=== PATIENT | female | born 1945 | race Caucasian/White ===

== ENCOUNTER 2022-11-27 15:27 | Emergency (ER) | payer MEDICARE, SELFPAY ==
[2022-11-27 15:42] VITALS: BP 139/79; BP 92/55; PULSE 82; RESP 16; TEMP 36.7; O2SAT 100; BMI 22.4
--- NOTE | 2022-11-27 15:43 | ECG_ITS ---
Test Reason : SYNCOPE Blood Pressure : / mmHG Vent. Rate : 088 BPM Atrial Rate : 088 BPM P-R Int : 144 ms QRS Dur : 066 ms QT Int : 358 ms P-R-T Axes : 075 -03 -09 degrees QTc Int : 433 ms Normal sinus rhythm Normal ECG No previous ECGs available Referred By: Generic ED Physician Electronically Signed By:GALINA FLEMING
[2022-11-27 15:58] LABS: Glucose, Whole Blood 90 mg/dL (60-115)
--- NOTE | 2022-11-27 17:00 | ED_ITS ---
HPI - Syncope General Chief Complaint: Syncope Stated Complaint: syncope Time Seen by Provider: 11/27/22 16:06 Source: patient Mode of arrival: EMS Limitations: no limitations History of Present Illness HPI narrative: Patient comes to the emergency room complaining of a near syncopal episode. Patient states that today, she was with some friends doing art project. Patient is to do up and started to feel lightheaded. Patient walked towards the lobby and realized that the lightheadedness was getting worse, patient was able to sit. Patient did not fall, did not hit her head or loss consciousness. Staff was able to assist the patient and called 911. EMS, the blood pressure was in the mid 80s. Up patient states that she was given IV fluids, and that made her feel much better. By the time that she arrived to the emergency room, patient was asymptomatic. Patient states that she feels back to baseline. Patient states that usually she eats breakfast and lunch. However, due to her activities today, she did not eat. Patient denies chest pain or shortness of breath Related Data Home Medications Medication Instructions Recorded Confirmed ibandronate 150 mg tablet 150 mg PO 08/25/20 08/25/20 Previous Rx's Medication Instructions Recorded doxycycline hyclate 100 mg tablet 100 mg PO BID #14 tabs 08/25/20 Allergies Allergy/AdvReac Type Severity Reaction Status Date / Time No Known Allergies Allergy Verified 08/25/20 15:08 Review of Systems 2 Review of Systems: Constitutional : No Weight loss, No Fever, No Chills, No Night Sweats, No Fatigue, No Malaise ENT/Mouth : No Hearing loss, No Ear Pain, No Nasal Congestion, No Sinus Pain, No Hoarseness, No sore throat, No Rhinorrhea, No Swallowing Difficulty Eyes: No Eye Pain, No Swelling, No Redness, No Foreign Body, No Discharge, No Vision Changes Cardiovascular : No Chest Pain, No SOB, No Dyspnea on Exertion, No Orthopnea, No Edema, No Palpitations Respiratory : No Cough, No Sputum, No Wheezing, No Smoke Exposure, No Dyspnea Gastrointestinal : No Nausea, No Vomiting, No Diarrhea, No Constipation, No abdominal Pain, No Hematochezia, No Melena Genitourinary : no irregular bleeding, No Dysuria, No Urinary Frequency, No Hematuria, No Urinary Incontinence, No Urgency, No Flank Pain, No Urinary Flow Changes, No Hesitancy Musculoskeletal : No joint pain, No Myalgias, No Joint Swelling Skin : No Skin Lesions, No rash Neuro : No Weakness, No Numbness, No Paresthesias, complaining of lightheadedness/near syncope, no headache Psych : No Anxiety/Panic, No Depression, No SI/HI/AH/VH, No Social Issues, Heme/Lymph: No Bruising, No Bleeding,No Lymphadenopathy Endocrine : No Polyuria, No Polydipsia, No Temperature Intolerance [facility] Social History Social History Advance Directives: No Advance Directives Information Provided: No Physical Exam 2 Vital Signs: Vital Signs: Last Vital Signs Temp 98.1 F 11/27/22 15:42 Pulse 90 11/27/22 17:20 Resp 16 11/27/22 15:42 BP 154/86 H 11/27/22 17:20 Pulse Ox 100 11/27/22 15:42 O2 Del Method Room Air 11/27/22 15:42 BMI result Body Mass Index 22.4 Const: Other: Appearance: Alert. Oriented X3. No acute distress. Eyes: Pupils equal, round and reactive to light. ENT: Pharynx normal. Neck: Normal inspection. Neck supple. No lymph nodes noted. No crepitus CVS: Normal heart rate and rhythm. Pulses normal. Normal S1 and S2 Respiratory: No respiratory distress. Breath sounds normal. No Wheezing. No rales Abdomen: Soft and nontender. No rigidity. No distention. Skin: Skin warm and dry. Normal skin color. Normal skin turgor. Extremities: No lower extremity edema. No Lacerations. No Rash Neuro: Oriented X 3. No motor deficit. No sensory deficit. Moving all extremities. No slurred speech. CN 2 through 12 grossly intact Psych: calm, cooperative, normal affect Course Course Course Narrative: -all of patient's labs and imaging pending. -patient received IV fluids, blood pressure 139/79, heart rate 82, oxygen saturation 100% on room air. Patient is completely asymptomatic Medical Decision Making Medical Decision Making MDM Narrative: -my interpretation of EKG: Normal sinus rhythm, heart rate 88, no ST segment depression elevation, no T-wave inversion, QTC 433 -patient's orthostatics negative -patient walked around the emergency room feeling at baseline. Tolerated well p.o. -patient's sodium 131, patient received IV fluids. Likely dehydrated. Troponin negative -patient's Wells score for pulmonary embolism is 0 Differential Diagnosis Differential Diagnoses: The differential diagnosis associated with the presentation includes (Orthostatic hypotension, dehydration, vasovagal near- syncope) Admission/Observation Consideration of admission/observation: Escalation of care including admission/observation considered (When patient arrived, patient had a near syncopal episode, admission was considered) Lab Data MDM Lab Attestation statement: I reviewed the patient's lab results. 11/27/22 17:10 11/27/22 17:10 Labs: Lab Results 11/27/22 11/27/22 11/27/22 Range/Units 15:49 17:10 17:28 WBC 8.1 (4.8-10.8) X10*3/uL RBC 3.86 L (4.20-5.50) X10*6/uL Hgb 12.7 (12.0-16.0) g/dl Hct 35.2 L (37.0-47.0) % MCV 91.2 (80.0-98.0) fL MCH 32.9 (27.0-33.0) pg MCHC 36.1 H (31.0-35.0) g/dl RDW 13.7 (11.0-16.0) % Plt Count 380 (160-400) X10*3/uL MPV 8.3 L (9.4-12.3) fL Immature Gran % (Auto) 0.1 (0.0-0.4) % Neut % (Auto) 76.7 H (45-73) % Lymph % (Auto) 16.6 L (20-40) % [place] % (Auto) 5.3 (2-11) % Eos % (Auto) 0.6 (0-4) % Baso % (Auto) 0.7 (0-2) % Lymph # (Auto) 1.3 (1.2-4.9) X10*3/uL [place] # (Auto) 0.4 (0.1-1.2) X10*3/uL Eos # (Auto) 0.1 (0.0-0.4) X10*3/uL Baso # (Auto) 0.1 (0.0-0.2) X10*3/uL Abs Immat Gran (auto) 0.01 (0.00-0.03) X10*3/uL Absolute Neuts (auto) 6.2 (2.0-8.3) x10*3/uL Absolute Nucleated RBC 0.000 (0.0-0.012) X10*3/uL Nucleated RBC % (auto) 0.0 (0.0-0.2) /100WBC Sodium 131 L (135-145) mmol/L Potassium 4.4 (3.3-5.1) mmol/L Chloride 98 (96-108) mmol/L Carbon Dioxide 23 (22-29) mmol/L Anion Gap 14 (12-20) BUN 10 (9-16) mg/dL Creatinine 0.62 (0.5-1.4) mg/dL Estim Creat Clear Calc 50.6 Estimated GFR > 60 POC Glucose 90 (60-115) mg/dL Random Glucose 95 (60-115) mg/dL Calcium 10.0 (8.4-10.2) mg/dL Total Bilirubin 0.4 (0.0-1.0) mg/dL Direct Bilirubin 0.2 (0.0-0.5) mg/dL AST 25 (5-31) U/L ALT 12 (0-31) U/L Alkaline Phosphatase 42 (39-117) U/L Troponin I High Sens < 2.7 (<3.5-17.0) ng/L Total Protein 7.6 (6.5-8.0) g/dL Albumin 4.4 (3.5-5.0) g/dL Urine Color Yellow Urine Appearance Clear Urine pH 7.0 (5.0-9.0) Ur Specific [place] 1.015 (1.005-1.025) Urine Protein Negative (Neg-Trace) mg/dL Urine Glucose (UA) Negative (Negative) mg/dL Urine Ketones 15 (Negative) mg/dL Urine Blood Negative (Negative) Urine Nitrite Negative (Negative) Ur Leukocyte Esterase Negative (Negative) Independent Interpretation I performed an independent interpretation of an: EKG Independent Historian Clinical information obtained from an independent historian. History obtained from or confirmed by: Other (Sisters) Discharge Plan Discharge Clinical Impression: Near syncope, Dehydration Patient Disposition: Home, Self-Care Instructions: Near Syncope (ED) Additional Instructions: Please follow-up with your primary care physician tomorrow. If you have any worsening or new symptoms, please return to the emergency room or call 911 Prescriptions: No Action ibandronate 150 mg tablet 150 mg PO doxycycline hyclate 100 mg tablet 100 mg PO BID Qty: 14 0RF
[2022-11-27 17:14] LABS: MANUAL DIFF FLAG NO
[2022-11-27 17:17] LABS: Basophils Absolute Auto 0.1 X10*3/uL (0.0-0.2); Basophils Percent Auto 0.7 % (0-2); Eosinophils Absolute Auto 0.1 X10*3/uL (0.0-0.4); Eosinophils Percent Auto 0.6 % (0-4); Hematocrit 35.2 % (37.0-47.0); Hemoglobin 12.7 g/dl (12.0-16.0); Imm Gran Abs Auto 0.01 X10*3/uL (0.00-0.03); Imm Gran Pct Auto 0.1 % (0.0-0.4); Lymphocytes Absolute Auto 1.3 X10*3/uL (1.2-4.9); Lymphocytes Percent Auto 16.6 % (20-40); Mean Corpuscular HGB Conc 36.1 g/dl (31.0-35.0); Mean Corpuscular Hemoglobin 32.9 pg (27.0-33.0); Mean Corpuscular Volume 91.2 fL (80.0-98.0); Mean Platelet Volume 8.3 fL (9.4-12.3); Monocytes Absolute Auto 0.4 X10*3/uL (0.1-1.2); Monocytes Percent Auto 5.3 % (2-11); Neutrophils Absolute Auto 6.2 x10*3/uL (2.0-8.3); Neutrophils Percent Auto 76.7 % (45-73); Platelet Count 380 X10*3/uL (160-400); Red Blood Count 3.86 X10*6/uL (4.20-5.50); Red Cell Distribution Width 13.7 % (11.0-16.0); White Blood Count 8.1 X10*3/uL (4.8-10.8)
[2022-11-27 17:18] VITALS: BP 144/77; PULSE 83
[2022-11-27 17:19] VITALS: BP 137/86; PULSE 91
[2022-11-27 17:20] VITALS: BP 154/86; PULSE 90
[2022-11-27 17:29] LABS: Alanine Aminotransferase 12 U/L (0-31); Albumin Level 4.4 g/dL (3.5-5.0); Alkaline Phosphatase 42 U/L (39-117); Anion Gap 14 (12-20); Aspartate Amino Transferase 25 U/L (5-31); Bilirubin Direct 0.2 mg/dL (0.0-0.5); Bilirubin Total 0.4 mg/dL (0.0-1.0); Blood Urea Nitrogen 10 mg/dL (9-16); Carbon Dioxide 23 mmol/L (22-29); Chloride 98 mmol/L (96-108); Creatinine Clr Calc Pharmacy 50.6; Estimated Glomerular Filt Rate > 60; Glucose Random 95 mg/dL (60-115); Potassium 4.4 mmol/L (3.3-5.1); Sodium 131 mmol/L (135-145); Total Protein 7.6 g/dL (6.5-8.0)
[2022-11-27 17:36] LABS: Troponin-I High Sensitivity < 2.7 ng/L (<3.5-17.0)
[2022-11-27 17:40] LABS: Appearance Urine Clear; Color Urine Yellow; Glucose Urine UA Negative (Negative); Leukocyte Esterase Urine Negative (Negative); Nitrite Urine Negative (Negative); Specific Gravity - Urine 1.015 (1.005-1.025); Urine Blood Negative (Negative); Urine Ketones 15 mg/dL (Negative); Urine Protein Negative (Neg-Trace)
== END 2022-11-27 19:13 | disposition home or self-care (01) ==
PROVIDERS: Emergency Provider Emergency Medicine; PCP Internal Medicine
DX: R55 Syncope and collapse (principal); E86.0 Dehydration
CPT/HCPCS: 36415; 80048; 80076; 81003; 82947; 84484; 85025; 93005; 99283; 99284

== ENCOUNTER 2023-12-20 19:54 | Inpatient (IN) | payer MEDICARE, SELFPAY ==
--- NOTE | ~2023-12-20 | CT_ITS ---
EXAMINATION: CT ABDOMEN AND PELVIS WITH CONTRAST CLINICAL INFORMATION: Left lower quadrant pain with tenderness to palpation and diarrhea COMPARISON: None available. TECHNIQUE: Multidetector volumetric images were obtained from the superior aspect of the liver through the pubic symphysis following administration 85 mL of Omnipaque 350 intravenous contrast. Sagittal and coronal reformatted images were obtained on the technologist's workstation. Oral contrast: No This CT examination was performed using dose optimization techniques as appropriate, variously including the following: *Automated exposure control *Adjustment of mA and/or kV according to patient size (this includes techniques or standardized protocols for targeted exams where dose is matched to indication/reason for exam; i.e. extremities or head) *Use of iterative reconstruction technique DLP: 444 mGy-cm FINDINGS: LUNG BASES: Emphysematous changes appear to be present. There is bronchial thickening and some cylindrical bronchiectasis seen at the lung bases. LIVER, GALLBLADDER, AND BILIARY TREE: The liver is normal in size, shape, and attenuation. There is a large complex cyst present at the tip of the right lobe of the liver measuring 4.9 x 4.0 x 6.2 cm few other scattered smaller cysts are present in the liver as well. No suspicious solid focal hepatic lesion or biliary ductal dilatation is present. The gallbladder is unremarkable with no evidence of radiopaque gallstones, gallbladder wall thickening, or obvious pericholecystic inflammatory changes. PANCREAS: Unremarkable. SPLEEN: Unremarkable. ADRENAL GLANDS: Adrenal glands are mildly thickened without discrete mass KIDNEYS AND URETERS: The kidneys are normal in size, shape, and attenuation. No hydronephrosis, hydroureter, or calculi seen. No perinephric stranding. BLADDER: The bladder is very distended. ABDOMINAL WALL AND GASTROINTESTINAL TRACT: A small hiatal hernia is present. There is an obstructing left inguinal hernia present (likely femoral) which contains a loop of small bowel. The bowel is tightly narrowed as it enters the hernia sac (7:27) and is tiny as it exits (see ash image). The distal small bowel is decompressed. The proximal small bowel is dilated. Colon is unremarkable and decompressed LYMPH NODES: Normal. VASCULAR: Unremarkable. PELVIC VISCERA: The uterus is not seen. An abnormal adnexal mass is not detected. No free intraperitoneal fluid is present. OSSEOUS STRUCTURES: Severe degenerative changes are present throughout the spine. There is marked grade 1 anterolisthesis of L4 upon L5. CT/CT abdomen pelvis w IV con IMPRESSION: 1. Markedly obstructing left femoral hernia containing a loop of small bowel. 2. Incidental note made of emphysema, hepatic cysts, small hiatal hernia, hysterectomy and severe degenerative changes in the spine with grade 1 anterolisthesis of L4 upon L5. Fleischner guidelines were followed. Electronically signed by: Sher Urbina MD 12/21/2023 01:37 AM EDT
--- NOTE | ~2023-12-20 | CT_ITS ---
EXAMINATION: CT HEAD WITHOUT CONTRAST CLINICAL INFORMATION: Fall. Head injury. COMPARISON: None available. TECHNIQUE: Contiguous axial imaging was performed from the skull base to vertex without intravenous administration of contrast. This CT examination was performed using dose optimization techniques as appropriate, variously including the following: *Automated exposure control *Adjustment of mA and/or kV according to patient size (this includes techniques or standardized protocols for targeted exams where dose is matched to indication/reason for exam; i.e. extremities or head) *Use of iterative reconstruction technique DLP: 635 mGy-cm FINDINGS: There is no acute intracranial hemorrhage. There is no evidence of acute/subacute cerebral or cerebellar infarction. There is no mass effect or midline shift. No extra-axial fluid collection. The ventricles are normal in size. There is mild microvascular ischemic change. The ocular lenses are surgically absent. The orbits are otherwise unremarkable. There is trace mucosal disease within the right maxillary sinus. There is sphenoid sinus mucosal disease bilaterally. The mastoid air cells are clear. The calvarium is intact. CT/CT head/brain wo IV con IMPRESSION: No acute intracranial abnormality. Microvascular ischemic change. Electronically signed by: Elías Sarabia DO 12/21/2023 12:40 AM EDT
--- NOTE | ~2023-12-20 | CT_ITS ---
EXAMINATION: CT CERVICAL SPINE WITHOUT CONTRAST CLINICAL INFORMATION: Fall. Head injury. COMPARISON: None available. TECHNIQUE: Noncontrast computed tomography of the cervical spine was performed. This CT examination was performed using dose optimization techniques as appropriate, variously including the following: *Automated exposure control *Adjustment of mA and/or kV according to patient size (this includes techniques or standardized protocols for targeted exams where dose is matched to indication/reason for exam; i.e. extremities or head) *Use of iterative reconstruction technique DLP: 859 mGy-cm FINDINGS: The prevertebral soft tissue is normal in appearance. There is trace anterolisthesis of C3 in relation to C4. There is mild anterolisthesis of C4 in relation to C5. There is mild anterolisthesis of C6 in relation to C7. There is trace anterolisthesis of C7 in relation to T1. The posterior elements are anatomically aligned. The atlantooccipital articulations are maintained. The dens is intact. The C1-C2 relationship is anatomic. Vertebral body heights are preserved. There is significant degenerative disc disease extending from C4-5 through C6-7. There is no acute cervical spine fracture. There is extensive facet arthropathy. The lung apices are clear. The thyroid gland is normal in appearance. CT/CT cervical spine wo IV con IMPRESSION: No acute osseous cervical spine abnormality. Degenerative disc disease and cervical spondylosis as described. Fleischner guidelines were followed. Electronically signed by: Elías Sarabia DO 12/21/2023 12:45 AM EDT
[2023-12-20 20:03] VITALS: BP 141/74; BP 145/65; PULSE 80; PULSE 92; RESP 15; TEMP 36.5; O2SAT 98; BMI 22.3
[2023-12-20 20:17] VITALS: BP 141/74; PULSE 92; RESP 15; TEMP 36.5; O2SAT 98
--- NOTE | 2023-12-20 20:19 | ECG_ITS ---
Test Reason : MITCHD Blood Pressure : / mmHG Vent. Rate : 093 BPM Atrial Rate : 093 BPM P-R Int : 154 ms QRS Dur : 072 ms QT Int : 334 ms P-R-T Axes : 049 -05 -03 degrees QTc Int : 415 ms Normal sinus rhythm Low voltage QRS Borderline ECG When compared with ECG of 27-NOV-2022 15:51, No significant change was found Referred By: Generic ED Physician Electronically Signed By:GALINA FLEMING
[2023-12-20 20:44] LABS: MANUAL DIFF FLAG NO
[2023-12-20 20:53] LABS: Basophils Percent Auto 0.2 % (0-2); Eosinophils Percent Auto 0.1 % (0-4); Hematocrit 33.3 % (37.0-47.0); Hemoglobin 12.2 g/dl (12.0-16.0); Imm Gran Abs Auto 0.03 X10*3/uL (0.00-0.03); Imm Gran Pct Auto 0.2 % (0.0-0.4); Lymphocytes Absolute Auto 0.7 X10*3/uL (1.2-4.9); Mean Corpuscular HGB Conc 36.6 g/dl (31.0-35.0); Mean Corpuscular Hemoglobin 32.5 pg (27.0-33.0); Mean Corpuscular Volume 88.8 fL (80.0-98.0); Mean Platelet Volume 8.1 fL (9.4-12.3); Monocytes Absolute Auto 0.4 X10*3/uL (0.1-1.2); Monocytes Percent Auto 3.3 % (2-11); Neutrophils Absolute Auto 12.3 x10*3/uL (2.0-8.3); Neutrophils Percent Auto 91.2 % (45-73); Platelet Count 348 X10*3/uL (160-400); Red Blood Count 3.75 X10*6/uL (4.20-5.50); Red Cell Distribution Width 13.4 % (11.0-16.0); SCAN SMEAR FLAG 1; White Blood Count 13.5 X10*3/uL (4.8-10.8)
[2023-12-20 20:58] LABS: Alanine Aminotransferase 17 U/L (0-31); Albumin Level 4.2 g/dL (3.5-5.0); Alkaline Phosphatase 67 U/L (39-117); Anion Gap 13 (12-20); Aspartate Amino Transferase 26 U/L (5-31); Bilirubin Total 0.4 mg/dL (0.0-1.0); Blood Urea Nitrogen 9 mg/dL (9-16); Calcium 9.5 mg/dL (8.4-10.2); Carbon Dioxide 20 mmol/L (22-29); Chloride 95 mmol/L (96-108); Creatinine Clr Calc Pharmacy 54.1; Estimated Glomerular Filt Rate > 60; Glucose Random 118 mg/dL (60-115); Lipase 24 U/L (8-78); Potassium 4.3 mmol/L (3.3-5.1); Sodium 124 mmol/L (135-145); Total Protein 7.5 g/dL (6.5-8.0)
[2023-12-20 21:06] LABS: Troponin-I High Sensitivity < 2.7 ng/L (<3.5-17.0)
--- NOTE | 2023-12-20 21:42 | ED_ITS ---
HPI - Abdominal Pain General Chief Complaint: Abdominal Pain Stated Complaint: abd pain, diarrhea Time Seen by Provider: 12/20/23 20:50 Source: patient, family and EMS Mode of arrival: EMS Limitations: no limitations History of Present Illness HPI narrative: Patient is a 78-year-old female who presents emergency department via EMS for evaluation. She reports that she went to lunch today, had a cup of soup glass of wine. Approximately 30-45 minutes later she began to have abdominal pain with abrupt onset loose watery diarrhea, she was unable to make it to the bathroom. She ultimately went home, she had a 2nd episode of diarrhea. After this she was walking, began to feel lightheaded and reports that she ?passed out?, but then reporting that she was awake the entire time, states she struck her head on the right side either onto an oscillating fan or the ground. At this time she denies headache, vision changes, dizziness, lightheadedness, neck pain, chest pain, shortness of breath, numbness or tingling of her extremities, symptoms. She is currently endorsing pain diffusely across the lower abdomen. Reports a history of a similar presentation a few years ago, was out of state visiting her son, symptoms ultimately resolved and she never sought evaluation. Related Data Home Medications ?Medication ?Instructions ?Recorded ?Confirmed oxybutynin chloride 5 mg 5 mg PO DAILY 12/21/23 12/21/23 tablet,extended release 24 hr Allergies Allergy/AdvReac Type Severity Reaction Status Date / Time No Known Allergies Allergy Verified 12/20/23 20:06 Review of Systems Review of Systems Yes all other systems are reviewed and are negative PMFSH Past Medical History Attestation statement: The following information was validated with the patient. Source: old records reviewed Social History Social History Smoked in Last 30 Days: No Use of substances other than those prescribed or required for medical reasons: No Advance Directives: Yes Advance Directives Information Provided: No Advance Directives on File: No Do you have a plan to hurt others: No Plan Physical Exam ED Vital Signs: Vital Signs - 24 hr 12/20/23 20:03 12/20/23 20:17 12/20/23 22:17 Temperature 97.7 F 97.7 F Pulse Rate 92 92 89 Respiratory Rate 15 15 Blood Pressure 141/74 H 141/74 H 137/68 Pulse Oximetry 98 98 Oxygen Delivery Method Room Air Room Air 12/20/23 22:18 12/20/23 22:19 12/20/23 22:51 Temperature 98.2 F Pulse Rate 94 100 58 Respiratory Rate 17 Blood Pressure 141/67 H 129/67 135/59 L Pulse Oximetry 99 Oxygen Delivery Method Room Air 12/21/23 05:37 12/21/23 05:42 12/21/23 08:25 Temperature 98.9 F 97.8 F 98.1 F Pulse Rate 85 79 72 Respiratory Rate 17 15 12 Blood Pressure 128/63 139/67 157/76 H Pulse Oximetry 98 100 98 Oxygen Delivery Method Room Air Room Air Room Air BMI result Body Mass Index 22.3 Appearance: Alert.?Oriented to person, place and time. No acute distress.?Normal affect. Eyes: Pupils equal, round and reactive to light.? ENT: Pharynx normal.?? Neck: Normal inspection.? Neck supple.?? CVS: Heart sounds normal. Normal heart rate and rhythm.? Pulses normal.?? Respiratory: No respiratory distress.? Lung sounds clear to auscultation bilaterally?? Abdomen: Soft with diffuse lower abdominal tenderness, worse on the left lower quadrant upon palpation. No CVAT Normoactive bowel sounds. Skin: Skin warm and dry.? Normal skin color.? Extremities: No lower extremity edema.? No calf ttp? Neuro: Moves all extremities spontaneously. Sensation intact bilaterally. CN II- XII intact. No focal neuro deficits. Ambulates with normal steady gait. Course Reevaluation(s) Reevaluation #1: CBC revealing leukocytosis 13.5, no significant anemia, no thrombocytopenia. Chemistries revealing hyponatremia with sodium of 124, urine sodium 51, urine osmolality 269, serum Osmo 268, likely SIADH. Reevaluation #2: Radiology called regarding critical finding of CT abdomen and pelvis; obstructive left femoral hernia containing small bowel. Unable to reduce at bedside. Consulting general surgery, Dr. Ruggiero Time: 01:43 Reevaluation #3: Dr. Ruggiero advises patient will require surgical repair, plans to do this in the morning, awaiting call back from nursing pigment making supervisor to chemistry be no inability to perform surgery in the morning given scheduled auxillary power testing. I do not foresee this resulting in an inability for surgery to occur, but awaiting confirmation. Dr. Ruggiero requesting plan for admission to medicine service given hyponatremia and surgical consultation. Spoke with hospitalist, Dr. Janes Garcia regarding patient. Time: 09:42 Additional Reevaluation(s): Patient's sodium improved to [address] Ruggiero will admit to their service Medical Decision Making Medical Decision Making MDM Narrative: Patient is a 78-year-old female with no reported past medical history presenting to emergency department for evaluation of diffuse lower abdominal pain in the setting of 2 episodes of uncontrollable diarrhea today as per HPI. Diffuse lower abdominal tenderness upon palpation, most notably in the left lower quadrant. Will obtain CBC to evaluate for leukocytosis/ anemia, CMP and lipase to evaluate for abnormal electrolytes /abnormal renal function/ abnormal hepatic/biliary function, CT of the abdomen and pelvis, and Urinalysis. Him concern for possible syncopal episode, maybe vasovagal, however will obtain troponin and EKG Differential Diagnosis Differential Diagnoses: The differential diagnosis associated with the presentation includes Consult Healthcare Provider Management of the patient was discussed with: Edge Stripper General surgery; Dr. Ruggiero. Patient to be admitted to surgical service with plan for surgical repair in the morning. Patient made aware, agreeable with plan of care Lab Data MDM Lab Attestation statement: I reviewed the patient's lab results. (See course narrative) 12/20/23 20:38 12/21/23 04:48 Labs: Lab Results 12/20/23 12/20/23 12/20/23 Range/Units 20:38 23:47 23:48 WBC 13.5 H (4.8-10.8) X10*3/uL RBC 3.75 L (4.20-5.50) X10*6/uL Hgb 12.2 (12.0-16.0) g/dl Hct 33.3 L (37.0-47.0) % MCV 88.8 (80.0-98.0) fL MCH 32.5 (27.0-33.0) pg MCHC 36.6 H (31.0-35.0) g/dl RDW 13.4 (11.0-16.0) % Plt Count 348 (160-400) X10*3/uL MPV 8.1 L (9.4-12.3) fL Immature Gran % (Auto) 0.2 (0.0-0.4) % Neut % (Auto) 91.2 H (45-73) % Lymph % (Auto) 5.0 L (20-40) % [place] % (Auto) 3.3 (2-11) % Eos % (Auto) 0.1 (0-4) % Baso % (Auto) 0.2 (0-2) % Lymph # (Auto) 0.7 L (1.2-4.9) X10*3/uL [place] # (Auto) 0.4 (0.1-1.2) X10*3/uL Eos # (Auto) 0.0 (0.0-0.4) X10*3/uL Baso # (Auto) 0.0 (0.0-0.2) X10*3/uL Abs Immat Gran (auto) 0.03 (0.00-0.03) X10*3/uL Absolute Neuts (auto) 12.3 H (2.0-8.3) x10*3/uL Absolute Nucleated RBC 0.000 (0.0-0.012) X10*3/uL Nucleated RBC % (auto) 0.0 (0.0-0.2) /100WBC PT 11.9 (10.9-12.4) SEC INR 1.0 (0.9-1.1) Sodium 124 L (135-145) mmol/L Potassium 4.3 (3.3-5.1) mmol/L Chloride 95 L (96-108) mmol/L Carbon Dioxide 20 L (22-29) mmol/L Anion Gap 13 (12-20) BUN 9 (9-16) mg/dL Creatinine 0.57 (0.5-1.4) mg/dL Estim Creat Clear Calc 54.1 Estimated GFR > 60 Random Glucose 118 H (60-115) mg/dL Osmolality 268 L (281-305) mosm/kg Lactic Acid (0.5-2.0) mmol/L Calcium 9.5 (8.4-10.2) mg/dL Total Bilirubin 0.4 (0.0-1.0) mg/dL AST 26 (5-31) U/L ALT 17 (0-31) U/L Alkaline Phosphatase 67 (39-117) U/L Troponin I High Sens < 2.7 (<3.5-17.0) ng/L Total Protein 7.5 (6.5-8.0) g/dL Albumin 4.2 (3.5-5.0) g/dL Lipase 24 (8-78) U/L Urine Color Urine Appearance Urine pH (5.0-9.0) Ur Specific [place] (1.005-1.025) Urine Protein (Neg-Trace) mg/dL Urine Glucose (UA) (Negative) mg/dL Urine Ketones (Negative) mg/dL Urine Blood (Negative) Urine Nitrite (Negative) Ur Leukocyte Esterase (Negative) Urine RBC (0-2) /HPF Urine WBC (0-5) /HPF Ur Squamous Epith Cells (0-2) /HPF Urine Bacteria (None Seen) Hyaline Casts (0-2) /LPF Urine Osmolality (373-1093) mosm/kg Ur Random Sodium mmol/L 12/20/23 12/21/23 12/21/23 Range/Units 23:49 03:21 04:48 WBC (4.8-10.8) X10*3/uL RBC (4.20-5.50) X10*6/uL Hgb (12.0-16.0) g/dl Hct (37.0-47.0) % MCV (80.0-98.0) fL MCH (27.0-33.0) pg MCHC (31.0-35.0) g/dl RDW (11.0-16.0) % Plt Count (160-400) X10*3/uL MPV (9.4-12.3) fL Immature Gran % (Auto) (0.0-0.4) % Neut % (Auto) (45-73) % Lymph % (Auto) (20-40) % [place] % (Auto) (2-11) % Eos % (Auto) (0-4) % Baso % (Auto) (0-2) % Lymph # (Auto) (1.2-4.9) X10*3/uL [place] # (Auto) (0.1-1.2) X10*3/uL Eos # (Auto) (0.0-0.4) X10*3/uL Baso # (Auto) (0.0-0.2) X10*3/uL Abs Immat Gran (auto) (0.00-0.03) X10*3/uL Absolute Neuts (auto) (2.0-8.3) x10*3/uL Absolute Nucleated RBC (0.0-0.012) X10*3/uL Nucleated RBC % (auto) (0.0-0.2) /100WBC PT (10.9-12.4) SEC INR (0.9-1.1) Sodium 130 L (135-145) mmol/L Potassium (3.3-5.1) mmol/L Chloride (96-108) mmol/L Carbon Dioxide (22-29) mmol/L Anion Gap (12-20) BUN (9-16) mg/dL Creatinine (0.5-1.4) mg/dL Estim Creat Clear Calc Estimated GFR Random Glucose (60-115) mg/dL Osmolality (281-305) mosm/kg Lactic Acid 0.8 (0.5-2.0) mmol/L Calcium (8.4-10.2) mg/dL Total Bilirubin (0.0-1.0) mg/dL AST (5-31) U/L ALT (0-31) U/L Alkaline Phosphatase (39-117) U/L Troponin I High Sens (<3.5-17.0) ng/L Total Protein (6.5-8.0) g/dL Albumin (3.5-5.0) g/dL Lipase (8-78) U/L Urine Color Yellow Urine Appearance Clear Urine pH 6.5 (5.0-9.0) Ur Specific [place] 1.020 (1.005-1.025) Urine Protein Negative (Neg-Trace) mg/dL Urine Glucose (UA) Negative (Negative) mg/dL Urine Ketones 40 (Negative) mg/dL Urine Blood Negative (Negative) Urine Nitrite Negative (Negative) Ur Leukocyte Esterase Negative (Negative) Urine RBC 3-5 H (0-2) /HPF Urine WBC 0-5 (0-5) /HPF Ur Squamous Epith Cells 0-2 (0-2) /HPF Urine Bacteria None Seen (None Seen) Hyaline Casts 0-2 (0-2) /LPF Urine Osmolality 269 L (373-1093) mosm/kg Ur Random Sodium 51.0 mmol/L Independent Interpretation I performed an independent interpretation of an: EKG Interpretation: Rate: 93 Rhythm:? Normal sinus rhythm Normal P waves.? Normal MARY.?? Normal QRS complex.?? ST T wave :??No ST elevation, no ST depression qTC:415 prior studies:? November of 2022 The study has been interpreted contemporaneously by me. Radiology Impression Discussion of test interpretation with radiology: I have reviewed the radiologist's reading. Radiologist Impression: CT/CT head/brain wo IV con IMPRESSION: No acute intracranial abnormality. Microvascular ischemic change. CT/CT cervical spine wo IV con IMPRESSION: No acute osseous cervical spine abnormality. Degenerative disc disease and cervical spondylosis as described. . CT/CT abdomen pelvis w IV con IMPRESSION: 1. Markedly obstructing left femoral hernia containing a loop of small bowel. 2. Incidental note made of emphysema, hepatic cysts, small hiatal hernia, hysterectomy and severe degenerative changes in the spine with grade 1 anterolisthesis of L4 upon L5. Independent Historian Clinical information obtained from an independent historian. History obtained from or confirmed by: EMS and Other (Sister's) External Record Review External record reviewed: Outpatient record Medications Administered Generic Name Dose Route Start Last Admin Trade Name Freq PRN Reason Stop Dose Admin Lactated Ringer's 1,000 mls @ 100 mls/hr 12/21/23 05:15 12/21/23 05:40 Lr IVCONT 100 mls/hr .Q10H KIAN Administration Discontinued Medications Generic Name Dose Route Start Last Admin Trade Name Freq PRN Reason Stop Dose Admin Sodium Chloride 1,000 mls @ 999 mls/hr 12/20/23 22:15 12/21/23 01:48 Ns IV 12/20/23 23:15 Infused .Q1H1M KIAN Infusion Iohexol 85 ml 12/20/23 23:16 12/20/23 23:16 Iohexol 350 Mg/Ml 100 Ml Infus..Btl IV 12/20/23 23:17 85 ml ONCE ONE Administration Discharge Plan Discharge Clinical Impression: Femoral hernia of left side with obstruction Patient Disposition: Admitted As Inpatient Print Language: Malay
[2023-12-20 22:17] VITALS: BP 137/68; PULSE 89
[2023-12-20 22:18] VITALS: BP 141/67; PULSE 94
[2023-12-20 22:19] VITALS: BP 129/67; PULSE 100
[2023-12-20] MEDS: 0.9 % Sodium Chloride 1,000 ML 999 ML IV (22:42)
[2023-12-20 22:51] VITALS: BP 135/59; PULSE 58; RESP 17; TEMP 36.8; O2SAT 99
[2023-12-20] MEDS: iohexoL 350 MG/ML 100 ML INFUS..BTL 85 ML IV (23:16)
[2023-12-20 23:56] LABS: Appearance Urine Clear; Color Urine Yellow; Glucose Urine UA Negative (Negative); Leukocyte Esterase Urine Negative (Negative); Nitrite Urine Negative (Negative); PH 6.5 (5.0-9.0); Urine Blood Negative (Negative); Urine Ketones 40 mg/dL (Negative); Urine Protein Negative (Neg-Trace)
[2023-12-21] VITALS (11 sets, daily range): BP systolic 121–157; BP diastolic 50–85; PULSE 72–99; RESP 12–18; TEMP 36–37.2; O2SAT 95–100; BMI 25.1
[2023-12-21 00:01] LABS: Prothrombin Time 11.9 SEC (10.9-12.4)
[2023-12-21 00:08] LABS: Bacteria Urine None Seen (None Seen); Hyaline Casts Urine 0-2 /LPF (0-2); Squamous Epithelial Cell Urine 0-2 /HPF (0-2); WBC Urine 0-5 /HPF (0-5)
[2023-12-21 00:26] LABS: Osmolality Urine 269 mosm/kg (373-1093)
[2023-12-21 00:48] LABS: Osmolality, Serum 268 mosm/kg (281-305)
[2023-12-21 03:41] LABS: Lactic Acid 0.8 mmol/L (0.5-2.0)
[2023-12-21 05:01] LABS: Sodium 130 mmol/L (135-145)
[2023-12-21] MEDS: Lactated Ringers 1,000 ML 100 ML IVCONT (05:40)
--- NOTE | 2023-12-21 08:40 | PHA.MEDREC ---
Addendum entered by Pranay Palacios 12/21/23 08:50: reviewed Original Note: Pharmacy Consult ? Medication Reconciliation Pharmacy has completed the medication reconciliation.
--- NOTE | 2023-12-21 12:58 | PC.NURSE ---
family with pt. pt has no complaints except that she is thirsty. Explained tht before surgery there she cannot have anything to eat or drink. Pt ok with plan. Waiting to surgical consult to come in and speak to patient.
--- NOTE | 2023-12-21 13:56 | PC.NURSE ---
sister Simba [phone]
--- NOTE | 2023-12-21 14:02 | P.CONAN_ITS ---
[facility] Active Problems Active Problems: All Active Problems Femoral hernia of left side with obstruction (Acute) Insect bite (Acute) Past Medical History Functional capacity: independent ambulation Patient : No Family History Family history of problems with anesthesia: No Surgical History History of Problems with Anesthesia: No Social History Social History Smoked in Last 30 Days: No Use of substances other than those prescribed or required for medical reasons: No Advance Directives: Yes Advance Directives Information Provided: No Advance Directives on File: No Do you have a plan to hurt others: No Plan Meds Allergies Allergy/AdvReac Type Severity Reaction Status Date / Time No Known Allergies Allergy Verified 12/20/23 20:06 Active Medications: Current Medications Lactated Ringer's (Lr) 1,000 mls @ 100 mls/hr IVCONT .Q10H KIAN Last Admin: 12/21/23 05:40 Dose: 100 mls/hr Home Medications ?Medication ?Instructions ?Recorded ?Confirmed ?Last Taken ?Type oxybutynin chloride 5 mg 5 mg PO DAILY 12/21/23 12/21/23 Unknown History tablet,extended release 24 hr Exam Height,Weight and Vital Signs: Height 4 ft 10 in Weight 48.4 kg Last Vital Signs Temp 98.1 F 12/21/23 12:17 Pulse 82 12/21/23 12:17 Resp 14 12/21/23 12:17 BP 128/62 12/21/23 12:17 Pulse Ox 98 12/21/23 12:17 O2 Del Method Room Air 12/21/23 12:17 Pertinent Lab Results Pertinent Lab Results: Laboratory Tests 12/20/23 12/20/23 12/20/23 20:38 23:47 23:48 WBC 13.5 H RBC 3.75 L Hgb 12.2 Hct 33.3 L MCV 88.8 MCH 32.5 MCHC 36.6 H RDW 13.4 Plt Count 348 MPV 8.1 L Immature Gran % (Auto) 0.2 Neut % (Auto) 91.2 H Lymph % (Auto) 5.0 L [place] % (Auto) 3.3 Eos % (Auto) 0.1 Baso % (Auto) 0.2 Lymph # (Auto) 0.7 L [place] # (Auto) 0.4 Eos # (Auto) 0.0 Baso # (Auto) 0.0 Abs Immat Gran (auto) 0.03 Absolute Neuts (auto) 12.3 H Absolute Nucleated RBC 0.000 Nucleated RBC % (auto) 0.0 PT 11.9 INR 1.0 Sodium 124 L Potassium 4.3 Chloride 95 L Carbon Dioxide 20 L Anion Gap 13 BUN 9 Creatinine 0.57 Estim Creat Clear Calc 54.1 Estimated GFR > 60 Random Glucose 118 H Osmolality 268 L Lactic Acid Calcium 9.5 Total Bilirubin 0.4 AST 26 ALT 17 Alkaline Phosphatase 67 Troponin I High Sens < 2.7 Total Protein 7.5 Albumin 4.2 Lipase 24 Urine Color Urine Appearance Urine pH Ur Specific [place] Urine Protein Urine Glucose (UA) Urine Ketones Urine Blood Urine Nitrite Ur Leukocyte Esterase Urine RBC Urine WBC Ur Squamous Epith Cells Urine Bacteria Hyaline Casts Urine Osmolality Ur Random Sodium 12/20/23 12/21/23 12/21/23 23:49 03:21 04:48 WBC RBC Hgb Hct MCV MCH MCHC RDW Plt Count MPV Immature Gran % (Auto) Neut % (Auto) Lymph % (Auto) [place] % (Auto) Eos % (Auto) Baso % (Auto) Lymph # (Auto) [place] # (Auto) Eos # (Auto) Baso # (Auto) Abs Immat Gran (auto) Absolute Neuts (auto) Absolute Nucleated RBC Nucleated RBC % (auto) PT INR Sodium 130 L Potassium Chloride Carbon Dioxide Anion Gap BUN Creatinine Estim Creat Clear Calc Estimated GFR Random Glucose Osmolality Lactic Acid 0.8 Calcium Total Bilirubin AST ALT Alkaline Phosphatase Troponin I High Sens Total Protein Albumin Lipase Urine Color Yellow Urine Appearance Clear Urine pH 6.5 Ur Specific [place] 1.020 Urine Protein Negative Urine Glucose (UA) Negative Urine Ketones 40 Urine Blood Negative Urine Nitrite Negative Ur Leukocyte Esterase Negative Urine RBC 3-5 H Urine WBC 0-5 Ur Squamous Epith Cells 0-2 Urine Bacteria None Seen Hyaline Casts 0-2 Urine Osmolality 269 L Ur Random Sodium 51.0 Airway Mallampati Class: II TM Dist: >3cm Neck ROM: Full Heart: RRR Lungs: CTA Assessment and Plan Assessment Anesthesia Assessment: Anesthesia Plan Discussed and Chart Reviewed Final Anesthetic Review Family History of Problems with Anesthesia: No History of Problems with Anesthesia: No NPO: Yes ASA Class: II and Emergency Final Preanesthetic Review: Meds/Allgs Chart Reviewed, Consent Obt ained/Reviewed, Anes Risks/Benef Reviewed and DNR Form (If Appl.) Patient Risk: Low Procedure Risk: Low Anesthetic Plan Anesthetic Plan: GA Disposition: Standard PACU
--- NOTE | 2023-12-21 14:07 | PC.NURSE ---
pt picked up Dr. Ruggiero for transport to OR. Report given to RN in OR
--- NOTE | 2023-12-21 14:11 | P.HPGS_ITS ---
History of Present Illness History of Present Illness Date of Service: 12/21/23 Chief complaint: abd pain, diarrhea Narrative: Fannie Bolton is a 78 year old female who is initial complaints were for diarrhea, lightheadedness which progressed to lower abdominal pain with associated nausea and vomiting. Workup including CT scan demonstrated findings consistent with an incarcerated left femoral hernia. Patient was unaware she had hernia before. She has never had symptoms from it prior to this. She otherwise tolerating a diet, has regular bowel habits. No prior abdominal surgeries Chart was reviewed and patient evaluated PMF Social History Social History Smoked in Last 30 Days: No Use of substances other than those prescribed or required for medical reasons: No Advance Directives: Yes Advance Directives Information Provided: No Advance Directives on File: No Do you have a plan to hurt others: No Plan Meds Allergies Allergy/AdvReac Type Severity Reaction Status Date / Time No Known Allergies Allergy Verified 12/20/23 20:06 Active Medications: Current Medications Lactated Ringer's (Lr) 1,000 mls @ 100 mls/hr IVCONT .Q10H KIAN Last Admin: 12/21/23 05:40 Dose: 100 mls/hr Cefazolin Sodium/Dextrose (Ancef) 2 gm in 50 mls @ 100 mls/hr IV PREOP ONE Stop: 12/21/23 14:38 Home Medications ?Medication ?Instructions ?Recorded ?Confirmed ?Last Taken ?Type oxybutynin chloride 5 mg 5 mg PO DAILY 12/21/23 12/21/23 Unknown History tablet,extended release 24 hr Physical Exam Vital Signs: Vital Signs: Last Vital Signs Temp 98.1 F 12/21/23 12:17 Pulse 82 12/21/23 12:17 Resp 14 12/21/23 12:17 BP 128/62 12/21/23 12:17 Pulse Ox 98 12/21/23 12:17 O2 Del Method Room Air 12/21/23 12:17 BMI result Body Mass Index 22.3 Const: Other: Petite elderly female in no acute abdominal distress although having low were groin left side pain Chest: Other: Chest breath sounds bilaterally, HS 1 in 2 GI: Other: Abdomen is soft, benign. Patient has an incarcerated left femoral hernia. Results Results Labs: Short CBC 12/20/23 Range/Units 20:38 WBC 13.5 H (4.8-10.8) X10*3/uL Hgb 12.2 (12.0-16.0) g/dl Hct 33.3 L (37.0-47.0) % Plt Count 348 (160-400) X10*3/uL BMP 12/20/23 12/21/23 20:38 04:48 Sodium 124 L 130 L Potassium 4.3 Chloride 95 L Carbon Dioxide 20 L BUN 9 Creatinine 0.57 Calcium 9.5 Liver Function 12/20/23 Range/Units 20:38 Total Bilirubin 0.4 (0.0-1.0) mg/dL AST 26 (5-31) U/L ALT 17 (0-31) U/L Alkaline Phosphatase 67 (39-117) U/L Albumin 4.2 (3.5-5.0) g/dL Urine 12/20/23 Range/Units 23:49 Urine Color Yellow Urine Appearance Clear Urine pH 6.5 (5.0-9.0) Ur Specific [place] 1.020 (1.005-1.025) Urine Protein Negative (Neg-Trace) mg/dL Urine Glucose (UA) Negative (Negative) mg/dL Assessment and Plan (1) Femoral hernia of left side with obstruction: Status: Acute Plan Risks, benefits, and alternatives of open left femoral hernia incarcerated repair reviewed with the patient and included but not limited to bleeding, infe ction, recurrence, numbness, pain, scarring, possibility for laparotomy should the bowel be compromise, possible bowel resection, possible ostomy and the patient wished to proceed. All questions answered. Patient is for OR presently. Quality Stroke Does the patient have a stroke diagnosis?: No VTE Prior VTE?: No VTE Risk Level:: Surgical - low VTE Device Contraindication: N/A - Device Ordered VTE Drug Contraindication: Treatment Not Indicated Procedures Date of Service Date of Service: 12/21/23
--- NOTE | 2023-12-21 15:41 | W.PM.OPN ---
Operative Note Operative Note Date of Service: 12/21/23 Narrative: Preoperative diagnosis: [] Incarcerated left femoral hernia Postop diagnosis: [] The same Procedure [] open repair incarcerated left femoral hernia with Bard mesh Surgeon: [] Bahman Amusement Machine Mechanic: [] Type of Anesthesia: [] General Indication for surgery: [] Incarcerated left femoral hernia with congested but viable segment of small bowel. Once obstruction was relieved, bowel became pink, had peristalsis, and palpable mesentery pulse. Findings: [] Patient brought to the operating room, placed on operative table supine position, after an adequate level of general anesthesia was induced, the patient's abdomen and left groin were prepped and draped in usual sterile fashion using a left infra inguinal, para inguinal incision over the femoral hernia, this carried down through skin, subcutaneous tissue, and Jane's fascia. Hernia sac was identified and circumferentially dissected down through the femoral canal. The left Inferior epigastric artery and vein were identified, clamped, cut, and tied using 2-0 Vicryl ties, to enhance exposure of the operative field. Superior border of the femoral canal/part of the inguinal ligament was opened and the sac was entered where findings were as noted above. With moist lap pad with saline over the incarcerated segment of small bowel which was initially quite congested, became pink and viable as noted above. This was uneventfully reduced. Hernia sac was closed using running locking 2-0 Vicryl suture. Hernia defect was closed with a Bard plug placed in this defect and sutured medially to the conjoined tendon, superiorly to the inguinal ligament, and inferiorly to the aponeurosis of the underlying adductor muscles. Wound was irrigated, secured hemostasis and Was closed in the following manner; Jane's fascia was reapproximated using interrupted 3-0 Vicryl suture. Interrupted inverted deep dermal 3-0 Vicryl sutures followed by running subcuticular 4-0 Vicryl sutures were placed. Steri-Strips and sterile dressings were applied. Wound was infiltrated the beginning and at the end of the case with 0.5% Marcaine. Sponge, needle, and instrument counts reported correct. Patient tolerated the procedure well and emerged from anesthesia stable condition. EBL minimal
[2023-12-21] MEDS: Acetaminophen 1,000 MG/100 ML PIGGYBACK 400 MG IV (15:47)
[2023-12-21] MEDS: Dextrose 5 % and 0.45 % NaCl 1,000 ML 100 ML IVCONT (16:17)
[2023-12-21] MEDS: Acetaminophen 325 MG TABLET 650 MG PO (22:38)
[2023-12-22] VITALS (8 sets, daily range): BP systolic 97–131; BP diastolic 57–77; PULSE 69–90; RESP 12–20; TEMP 36.4–37.1; O2SAT 94–100
[2023-12-22] MEDS: Dextrose 5 % and 0.45 % NaCl 1,000 ML 100 ML IVCONT ×2 (01:19→15:35)
[2023-12-22] MEDS: Acetaminophen 325 MG TABLET 650 MG PO ×2 (04:22→15:44)
--- NOTE | 2023-12-22 13:16 | P.PNGS_ITS ---
Subjective Subjective Date of Service: 12/22/23 Interval history: Postop day 1. Patient uneventful evening. Original abdominal pain has resolved. She has monitor incisional discomfort otherwise doing well. No gas or stool yet. Tolerating full liquids. Physical Exam 2 Vital Signs: Vital Signs: Last Vital Signs Temp 97.6 F 12/22/23 13:14 Pulse 90 12/22/23 13:14 Resp 12 12/22/23 13:14 BP 128/77 12/22/23 13:14 Pulse Ox 100 12/22/23 13:14 O2 Del Method Room Air 12/22/23 13:14 BMI result Body Mass Index 25.1 GI: Other: Abdomen mildly distended, soft, benign. Incision dressing clean dry and intact Objective Data Active Medications Acetaminophen (Acetaminophen 325 Mg Tablet) 650 mg PO Q6H PRN PRN Reason: Pain, Mild (Pain Scale 1-3), fever or headache Last Admin: 12/22/23 04:22 Dose: 650 mg Documented By: SAEID Calcium Carbonate (Calcium Carbonate 750 Mg Tab.Chew) 750 mg PO Q4H PRN PRN Reason: Heartburn Hydromorphone HCl (Hydromorphone Hcl 1 Mg/Ml Syringe) 0.5 mg IVPUSH Q4H PRN; Protocol PRN Reason: Pain, Severe (Pain Scale 7-10) Lactated Ringer's (Lr) 1,000 mls @ 100 mls/hr IVCONT .Q10H [facility] Last Admin: 12/22/23 12:19 Dose: Not Given Documented By: SHAWN Non-Admin Reason: Duplicate Order Dextrose/Sodium Chloride (D51/2ns) 1,000 mls @ 100 mls/hr IVCONT .Q10H [facility] Last Infusion: 12/22/23 12:19 Dose: Infused Documented By: SHAWN Ketorolac Tromethamine (Ketorolac Tromethamine 30 Mg/Ml Vial) 30 mg IVPUSH Q6H PRN PRN Reason: Pain, Mild (Pain Scale 1-3) Stop: 12/26/23 15:37 Magnesium Hydroxide (Milk Of Magnesia 30 Ml Oral.Susp) 30 ml PO DAILY PRN PRN Reason: Constipation Melatonin (Melatonin 3 Mg Tablet) 6 mg PO BEDTIME PRN PRN Reason: Insomnia Naloxone HCl (Naloxone Hcl 0.4 Mg/Ml Vial) 0.04 mg IVPUSH Q5M PRN PRN Reason: Excessive sedation or RR < 8 Ondansetron HCl (Ondansetron Hcl 4 Mg/2 Ml Vial) 4 mg IVPUSH Q8H PRN PRN Reason: Nausea and Vomiting Sodium Chloride (0.9 % Sodium Chloride Flush 3 Ml Syringe) 3 ml IVFLUSH QSHIFT KIAN Last Admin: 12/22/23 08:01 Dose: Not Given Documented By: SHAWN Non-Admin Reason: IV Running Labs 12/20/23 20:38 12/21/23 04:48 Procedures Date of Service Date of Service: 12/22/23 Progress Note: A&P Assessment and plan (1) Postop check: Status: Acute (2) Femoral hernia of left side with obstruction: Status: Acute Plan Was stable with clear liquids for now to bowel function returns, incentive spirometry, out of bed/ambulate, ice to wound Time Spent With Patient Time: Total time managing care of this patient today ____ minutes. Quality Stroke Does the patient have a stroke diagnosis?: No VTE Prior VTE?: No VTE Risk Level:: Surgical - low VTE Device Contraindication: N/A - Device Ordered VTE Drug Contraindication: Treatment Not Indicated
--- NOTE | 2023-12-22 16:29 | MHC.CM.PN ---
IMM 12/22/23 Female lives alone @ [facility]. She was BIBA after a fall at home. An incidental finding Incarcerated Hernia. Patient s/p surgical intervention POD#1. Patient was independent prior to fall at home. A referral has been sent to [facility] at pts request. a REFERRAL HAS BEEN SENT TO [facility]. pATIENT NEEDS interior design faculty member AND HOMEMAKER. Patients sisters provide rides to appointments. DP home with new [facility] EC. A family member will provide transport home.
[2023-12-22] MEDS: Melatonin 3 MG TABLET 6 MG PO (22:33)
[2023-12-22] MEDS: Ketorolac Tromethamine 30 MG/ML VIAL IVPUSH (22:34)
[2023-12-23] MEDS: Dextrose 5 % and 0.45 % NaCl 1,000 ML 100 ML IVCONT ×2 (02:27→10:57)
[2023-12-23 03:37] VITALS: BP 119/68; PULSE 74; RESP 18; TEMP 36.9; O2SAT 97
[2023-12-23] MEDS: Ketorolac Tromethamine 30 MG/ML VIAL IVPUSH (05:29)
[2023-12-23 08:00] VITALS: BP 125/71; PULSE 73; RESP 17; TEMP 36.8; O2SAT 99
--- NOTE | 2023-12-23 08:21 | P.PNGS_ITS ---
Subjective Subjective Date of Service: 12/23/23 <Grisel Donovan PA-C - Last Filed: 12/23/23 08:30> 12/23/23 <Jaylen Ruggiero MD - Last Filed: 12/23/23 09:15> Interval history: Overall feeling better. Tolerating clear liquids, denies flatus or BM. OOB and ambulating, using incentive. <Grisel Donovan PA-C - Last Filed: 12/23/23 08:30> Physical Exam 2 Vital Signs: Vital Signs: Last Vital Signs Temp 98.2 F 12/23/23 08:00 Pulse 73 12/23/23 08:00 Resp 17 12/23/23 08:00 BP 125/71 12/23/23 08:00 Pulse Ox 99 12/23/23 08:00 O2 Del Method Room Air 12/23/23 08:00 BMI result Body Mass Index 25.1 <ZACH Rucker Last Filed: 12/23/23 08:30> Const: General: comfortable, no acute distress and alert <Grisel Donovan PA-C - Last Filed: 12/23/23 08:30> Orientation/consciousness: patient oriented x3 <ZACH Rucker Last Filed: 12/23/23 08:30> Resp: Effort & Inspection: normal respiratory effort <Grisel Donovan PA-C - Last Filed: 12/23/23 08:30> GI: Inspection: Yes distended and Yes incision (clean) <ZACH Rucker Last Filed: 12/23/23 08:30> Palpation (GI): Soft to palpation, Tenderness to palpation present (GI) (mild incisional) and no guarding <ZACH Rucker Last Filed: 12/23/23 08:30> Percussion: Yes tympanic to percussion <ZACH Rucker Last Filed: 12/23/23 08:30> Skin: General skin exam: no rashes or lesions noted <ZACH Rucker Last Filed: 12/23/23 08:30> Neuro: General: patient oriented x3 and moves all extremities <Grisel Donovan PA-C - Last Filed: 12/23/23 08:30> Objective Data Active Medications Acetaminophen (Acetaminophen 325 Mg Tablet) 650 mg PO Q6H PRN PRN Reason: Pain, Mild (Pain Scale 1-3), fever or headache Last Admin: 12/22/23 15:44 Dose: 650 mg Documented By: SHAWN Calcium Carbonate (Calcium Carbonate 750 Mg Tab.Chew) 750 mg PO Q4H PRN PRN Reason: Heartburn Hydromorphone HCl (Hydromorphone Hcl 1 Mg/Ml Syringe) 0.5 mg IVPUSH Q4H PRN; Protocol PRN Reason: Pain, Severe (Pain Scale 7-10) Dextrose/Sodium Chloride (D51/2ns) 1,000 mls @ 100 mls/hr IVCONT .Q10H [facility] Last Admin: 12/23/23 02:27 Dose: 100 mls/hr Documented By: ALEJA Ketorolac Tromethamine (Ketorolac Tromethamine 30 Mg/Ml Vial) 30 mg IVPUSH Q6H PRN PRN Reason: Pain, Mild (Pain Scale 1-3) Stop: 12/26/23 15:37 Last Admin: 12/23/23 05:29 Dose: 30 mg Documented By: ALEJA Magnesium Hydroxide (Milk Of Magnesia 30 Ml Oral.Susp) 30 ml PO DAILY PRN PRN Reason: Constipation Melatonin (Melatonin 3 Mg Tablet) 6 mg PO BEDTIME PRN PRN Reason: Insomnia Last Admin: 12/22/23 22:33 Dose: 6 mg Documented By: ALEJA Naloxone HCl (Naloxone Hcl 0.4 Mg/Ml Vial) 0.04 mg IVPUSH Q5M PRN PRN Reason: Excessive sedation or RR < 8 Ondansetron HCl (Ondansetron Hcl 4 Mg/2 Ml Vial) 4 mg IVPUSH Q8H PRN PRN Reason: Nausea and Vomiting Sodium Chloride (0.9 % Sodium Chloride Flush 3 Ml Syringe) 3 ml IVFLUSH QSHIFT [facility] Last Admin: 12/23/23 07:10 Dose: Not Given Documented By: DON Non-Admin Reason: IV Running <Grisel Donovan PA-C - Last Filed: 12/23/23 08:30> Labs CBC & Chem 7: 12/20/23 20:38 12/21/23 04:48 <Grisel Donovan PA-C - Last Filed: 12/23/23 08:30> Procedures Date of Service Date of Service: 12/23/23 <Grisel Donovan PA-C - Last Filed: 12/23/23 08:30> 12/23/23 <Jaylen Ruggiero MD - Last Filed: 12/23/23 09:15> Progress Note: A&P Assessment and plan (1) Femoral hernia of left side with obstruction: Status: Acute <Grisel Donovan PA-C - Last Filed: 12/23/23 08:30> Assessment and Plan: POD #2 s/p open repair incarcerated left femoral hernia with Bard mesh. Overall doing well post op but awaiting return of bowel function. Can continue clear liquids for now, increase activity, IS use. Patient comfortable with plan. <Grisel Donovan PA-C - Last Filed: 12/23/23 08:30> POD #2 s/p open repair incarcerated left femoral hernia with Bard mesh. Overall doing well post op but awaiting return of bowel function. Can continue clear liquids for now, increase activity, IS use. Patient comfortable with plan. As noted above <Jaylen Ruggiero MD - Last Filed: 12/23/23 09:15> Time Spent With Patient Time: Total time managing care of this patient today ____ minutes. <Grisel Donovan PA-C - Last Filed: 12/23/23 08:30> Quality Stroke Does the patient have a stroke diagnosis?: No <Grisel Donovan PA-C - Last Filed: 12/23/23 08:30> VTE Prior VTE?: No <Grisel Donovan PA-C - Last Filed: 12/23/23 08:30> VTE Risk Level:: Surgical - low <Grisel Donovan PA-C - Last Filed: 12/23/23 08:30> VTE Device Contraindication: N/A - Device Ordered <Grisel Donovan PA-C - Last Filed: 12/23/23 08:30> VTE Drug Contraindication: Treatment Not Indicated <Grisel Donovan PA-C - Last Filed: 12/23/23 08:30>
--- NOTE | 2023-12-23 09:15 | HO.POSTANES ---
Post Anesthesia Evaluation Post Anesthesia Evaluation Date of Service: 12/23/23 Vital Signs: Vital Signs Temp Pulse Resp BP Pulse Ox O2 Del Method 12/23/23 08:00 98.2 F 73 17 125/71 99 Room Air 12/23/23 03:37 98.4 F 74 18 119/68 97 Room Air 12/22/23 23:42 98.7 F 69 20 112/58 L 98 Room Air Anesthesia: General Mental Status: Awake Pain Control: Satisfactory Nausea/Vomiting: None Hydration: Adequate Anesthesia-Related Issues: No Anes. Related Issues
[2023-12-23 11:44] VITALS: BP 123/64; PULSE 81; RESP 16; TEMP 36.4; O2SAT 98
[2023-12-23] MEDS: oxyBUTYnin chloride ER 5 MG TAB.ER.24 PO (12:36)
[2023-12-23 16:00] VITALS: BP 134/24; PULSE 78; RESP 18; TEMP 37.1; O2SAT 99
[2023-12-23] MEDS: 0.9 % Sodium Chloride Flush 3 ML SYRINGE IVFLUSH (19:47)
[2023-12-23 19:59] VITALS: BP 155/77; PULSE 86; RESP 16; TEMP 37.1; O2SAT 98
[2023-12-23] MEDS: Calcium Carbonate 750 MG TAB.CHEW PO (21:57)
[2023-12-23] MEDS: Acetaminophen 325 MG TABLET 650 MG PO (21:57)
[2023-12-23] MEDS: Melatonin 3 MG TABLET 6 MG PO (21:58)
[2023-12-23 23:26] VITALS: BP 137/87; PULSE 76; RESP 16; TEMP 36.4; O2SAT 97
[2023-12-24 03:06] VITALS: BP 136/66; PULSE 74; RESP 16; TEMP 36.4; O2SAT 98
[2023-12-24] MEDS: Ketorolac Tromethamine 30 MG/ML VIAL IVPUSH (03:17)
--- NOTE | 2023-12-24 06:56 | HO.STUDENTPN ---
Subjective Subjective Date of Service: 12/24/23 <Shari Dodge - Last Filed: 12/24/23 07:05> 12/24/23 <Grisel Donovan PA-C - Last Filed: 12/24/23 09:12> Interval History: She states that she is doing well, currently reporting localized pain to incision site and rating it 2/10. States that she is ambulating more, able to use restroom by herself. No difficulties urinating. However, has not regained bowel function, reports last BM and flatus on Saturday. Denies nausea, diffuse abdominal pain. Reports abdominal bloating and feeling movement/ hearing gurgles in her abdomen last night. <Shari Dodge - Last Filed: 12/24/23 07:05> Review of Systems Negative except for as stated in HPI. <Shari Dodge - Last Filed: 12/24/23 07:05> Physical Exam Vital Signs: Vital Signs: Last Vital Signs Temp 97.6 F 12/24/23 03:06 Pulse 74 12/24/23 03:06 Resp 16 12/24/23 03:06 BP 136/66 12/24/23 03:06 Pulse Ox 98 12/24/23 03:06 O2 Del Method Room Air 12/24/23 03:06 BMI result Body Mass Index 25.1 <Shari Dodge - Last Filed: 12/24/23 07:05> Const: Other: Elderly female resting comfortably, upright in hospital bed. In no acute abdominal distress, reports having left side pain localized to left groin incision site. <Shari Dodge - Last Filed: 12/24/23 07:05> General: comfortable, no acute distress and alert <Shari Dodge - Last Filed: 12/24/23 07:05> Orientation/consciousness: patient oriented x3 <Shari Dodge - Last Filed: 12/24/23 07:05> HEENT: Head: Yes normal to inspection <Shari Dodge - Last Filed: 12/24/23 07:05> Chest: Other: Chest breath sounds bilaterally S1, S2 Normal rate and rhythm, no murmurs, rubs or gallops <Shari Dodge - Last Filed: 12/24/23 07:05> Resp: Effort & Inspection: normal respiratory effort, able to speak in complete sentences and no respiratory distress <Shari Dodge - Last Filed: 12/24/23 07:05> GI: Other: Abdomen mildly distended, soft, benign. BS normoactive x4. No guarding or tenderness to palpation of abdomen. Incision dressing clean dry and intact. Dressing with mild surrounding ecchymosis, no drainage <Sharitaz Dodge - Last Filed: 12/24/23 07:05> Inspection: Yes distended and Yes incision (clean) <Sharigali Dodge - Last Filed: 12/24/23 07:05> Palpation (GI): Soft to palpation, Tenderness to palpation present (GI) (mild incisional) and no guarding <Sharitaz Dodge Last Filed: 12/24/23 07:05> Percussion: Yes tympanic to percussion <Sharitaz Dodge - Last Filed: 12/24/23 07:05> Skin: General skin exam: no rashes or lesions noted <Shair Dodge Last Filed: 12/24/23 07:05> Neuro: General: patient oriented x3 and moves all extremities <Shari Dodge Last Filed: 12/24/23 07:05> Objective Data Active Medications Acetaminophen (Acetaminophen 325 Mg Tablet) 650 mg PO Q6H PRN PRN Reason: Pain, Mild (Pain Scale 1-3), fever or headache Last Admin: 12/23/23 21:57 Dose: 650 mg Documented By: ALEJA Calcium Carbonate (Calcium Carbonate 750 Mg Tab.Chew) 750 mg PO Q4H PRN PRN Reason: Heartburn Last Admin: 12/23/23 21:57 Dose: 750 mg Documented By: ALEJA Hydromorphone HCl (Hydromorphone Hcl 1 Mg/Ml Syringe) 0.5 mg IVPUSH Q4H PRN; Protocol PRN Reason: Pain, Severe (Pain Scale 7-10) Ketorolac Tromethamine (Ketorolac Tromethamine 30 Mg/Ml Vial) 30 mg IVPUSH Q6H PRN PRN Reason: Pain, Mild (Pain Scale 1-3) Stop: 12/26/23 15:37 Last Admin: 12/24/23 03:17 Dose: 30 mg Documented By: ALEJA Magnesium Hydroxide (Milk Of Magnesia 30 Ml Oral.Susp) 30 ml PO DAILY PRN PRN Reason: Constipation Melatonin (Melatonin 3 Mg Tablet) 6 mg PO BEDTIME PRN PRN Reason: Insomnia Last Admin: 12/23/23 21:58 Dose: 6 mg Documented By: ALEJA Naloxone HCl (Naloxone Hcl 0.4 Mg/Ml Vial) 0.04 mg IVPUSH Q5M PRN PRN Reason: Excessive sedation or RR < 8 Ondansetron HCl (Ondansetron Hcl 4 Mg/2 Ml Vial) 4 mg IVPUSH Q8H PRN PRN Reason: Nausea and Vomiting Oxybutynin Chloride (Oxybutynin Chloride Er 5 Mg Tab.Er.24) 5 mg PO DAILY [facility] Last Admin: 12/23/23 12:36 Dose: 5 mg Documented By: DON Oxycodone HCl (Oxycodone Hcl Immed Release 5 Mg Tablet) 5 mg PO Q4H PRN PRN Reason: Pain, Moderate(Pain Scale 4-6) Sodium Chloride (0.9 % Sodium Chloride Flush 3 Ml Syringe) 3 ml IVFLUSH QSHIFT [facility] Last Admin: 12/23/23 19:47 Dose: 3 ml Documented By: ALEJA <Sharigali Dodge - Last Filed: 12/24/23 07:05> Labs CBC & Chem 7: 12/20/23 20:38 12/21/23 04:48 <Shari Dodge - Last Filed: 12/24/23 07:05> Assessment and Plan (1) Femoral hernia of left side with obstruction: Status: Acute <Shari Dodge - Last Filed: 12/24/23 07:05> Assessment and Plan: Ms. Bolton is a 78 y/o female POD #2 for open repair incarcerated left femoral hernia with mesh. Postoperatively, she is doing well, however still awaiting return of normal bowel function. Abdomen is mildly distended with normoactive BS x4. Incision site is dry and without any drainage. Steris intact. Currently on clear liquids, continue until bowel function restored. Encouraged more frequent ambulation and use of incentive spirometer. Will advance diet with adventist of normal bowel function. <Shari Dodge - Last Filed: 12/24/23 07:05> Ms. Bolton is a 78 y/o female POD #2 for open repair incarcerated left femoral hernia with mesh. Postoperatively, she is doing well, however still awaiting return of normal bowel function. Abdomen is mildly distended with normoactive BS x4. Incision site is dry and without any drainage. Steris intact. Currently on clear liquids, continue until bowel function restored. Encouraged more frequent ambulation and use of incentive spirometer. Will advance diet with adventist of normal bowel function. Agree with above assessment. POD #3 s/p open repair incarcerated left femoral hernia with Bard mesh. Continues to do well overall post op but awaiting return of bowel function. Will advance to full liquids, continue OOB/ambulation, IS use. Once evidence of return of GI function, will advance to solid diet and if tolerating discharge to home. Patient comfortable with plan. <Grisel Donovan PA-C - Last Filed: 12/24/23 09:12> Quality Stroke Does the patient have a stroke diagnosis?: No <Shari Dodge - Last Filed: 12/24/23 07:05> VTE Prior VTE?: No <Shari Dodge - Last Filed: 12/24/23 07:05> VTE Risk Level:: Surgical - low <Shari Dodge - Last Filed: 12/24/23 07:05> VTE Device Contraindication: N/A - Device Ordered <Shari Dodge - Last Filed: 12/24/23 07:05> VTE Drug Contraindication: Treatment Not Indicated <Shari Dodge - Last Filed: 12/24/23 07:05>
[2023-12-24 07:23] VITALS: BP 146/70; PULSE 83; RESP 17; TEMP 36.1; O2SAT 99
[2023-12-24] MEDS: 0.9 % Sodium Chloride Flush 3 ML SYRINGE IVFLUSH ×3 (07:41→19:27)
[2023-12-24] MEDS: oxyBUTYnin chloride ER 5 MG TAB.ER.24 PO (07:41)
[2023-12-24] MEDS: Acetaminophen 325 MG TABLET 650 MG PO ×2 (07:44→21:22)
[2023-12-24 11:44] VITALS: BP 127/60; PULSE 86; RESP 16; TEMP 36; O2SAT 100
[2023-12-24] MEDS: Calcium Carbonate 750 MG TAB.CHEW PO ×2 (14:11→20:19)
[2023-12-24 15:56] VITALS: BP 117/58; PULSE 80; RESP 18; TEMP 36.9; O2SAT 100
[2023-12-24 20:00] VITALS: BP 140/68; PULSE 87; RESP 16; TEMP 36.8; O2SAT 99
[2023-12-25] VITALS: BP 114/63; PULSE 75; RESP 16; TEMP 36.1; O2SAT 97
[2023-12-25 03:41] VITALS: BP 127/72; PULSE 78; RESP 16; TEMP 36.4; O2SAT 96
--- NOTE | 2023-12-25 06:57 | HO.STUDPN_ITS ---
Subjective Subjective Date of Service: 12/25/23 <Shari Dodge - Last Filed: 12/25/23 07:05> 12/25/23 <Grisel Donovan PA-C - Last Filed: 12/25/23 08:10> Interval History: She states that she is doing well, currently reporting continued localized pain to incision site and rating it 2/10, pain is worse at nighttime. States that she is ambulating more, able to use restroom by herself. No difficulties urinating. However, has not regained bowel function, reports last BM Saturday. Reports two episodes of passing flatus yesterday morning. Reports appetite is currently intact. Had one episode of nausea yesterday at dinner. Currently on clear full liquids. <Shari Dodge - Last Filed: 12/25/23 07:05> Review of Systems Negative except for as stated in HPI. <Shari Dodge - Last Filed: 12/25/23 07:05> Physical Exam 2 Vital Signs: Vital Signs: Last Vital Signs Temp 97.5 F 12/25/23 03:41 Pulse 78 12/25/23 03:41 Resp 16 12/25/23 03:41 BP 127/72 12/25/23 03:41 Pulse Ox 96 12/25/23 03:41 O2 Del Method Room Air 12/25/23 03:41 BMI result Body Mass Index 25.1 <Shari Dodge - Last Filed: 12/25/23 07:05> Const: Other: Elderly female resting comfortably, upright in hospital bed. In no acute abdominal distress, reports having left side pain localized to left groin incision site. <Shari Dodge - Last Filed: 12/25/23 07:05> General: comfortable, no acute distress and alert <Shari Dodge - Last Filed: 12/25/23 07:05> Orientation/consciousness: patient oriented x3 <Shari Dodge - Last Filed: 12/25/23 07:05> HEENT: Head: Yes normal to inspection <Shari Dodge - Last Filed: 12/25/23 07:05> Chest: Other: Chest breath sounds bilaterally S1, S2 Normal rate and rhythm, no murmurs, rubs or gallops <Shari Lanier - Last Filed: 12/25/23 07:05> Resp: Effort & Inspection: normal respiratory effort, able to speak in complete sentences and no respiratory distress <Shari Lanier - Last Filed: 12/25/23 07:05> GI: Other: Abdomen mildly distended, soft, benign. BS normoactive x4. No guarding or tenderness to palpation of abdomen. Incision dressing clean dry and intact. Dressing with mild surrounding ecchymosis, no drainage <Shari Lanier - Last Filed: 12/25/23 07:05> Inspection: Yes distended and Yes incision (clean) <Shari Lanier - Last Filed: 12/25/23 07:05> Palpation (GI): Soft to palpation, Tenderness to palpation present (GI) (mild incisional) and no guarding <Shari Lanier Last Filed: 12/25/23 07:05> Percussion: Yes tympanic to percussion <Shari Lanier - Last Filed: 12/25/23 07:05> Skin: General skin exam: no rashes or lesions noted <Shari Lanier Last Filed: 12/25/23 07:05> Neuro: General: patient oriented x3 and moves all extremities <Sharigali Dodge - Last Filed: 12/25/23 07:05> Objective Data Active Medications Acetaminophen (Acetaminophen 325 Mg Tablet) 650 mg PO Q6H PRN PRN Reason: Pain, Mild (Pain Scale 1-3), fever or headache Last Admin: 12/24/23 21:22 Dose: 650 mg Documented By: PATRICE Calcium Carbonate (Calcium Carbonate 750 Mg Tab.Chew) 750 mg PO Q4H PRN PRN Reason: Heartburn Last Admin: 12/24/23 20:19 Dose: 750 mg Documented By: PATRICE Hydromorphone HCl (Hydromorphone Hcl 1 Mg/Ml Syringe) 0.5 mg IVPUSH Q4H PRN; Protocol PRN Reason: Pain, Severe (Pain Scale 7-10) Ketorolac Tromethamine (Ketorolac Tromethamine 30 Mg/Ml Vial) 30 mg IVPUSH Q6H PRN PRN Reason: Pain, Mild (Pain Scale 1-3) Stop: 12/26/23 15:37 Last Admin: 12/24/23 03:17 Dose: 30 mg Documented By: ALEJA Magnesium Hydroxide (Milk Of Magnesia 30 Ml Oral.Susp) 30 ml PO DAILY PRN PRN Reason: Constipation Melatonin (Melatonin 3 Mg Tablet) 6 mg PO BEDTIME PRN PRN Reason: Insomnia Last Admin: 12/23/23 21:58 Dose: 6 mg Documented By: ALEJA Naloxone HCl (Naloxone Hcl 0.4 Mg/Ml Vial) 0.04 mg IVPUSH Q5M PRN PRN Reason: Excessive sedation or RR < 8 Ondansetron HCl (Ondansetron Hcl 4 Mg/2 Ml Vial) 4 mg IVPUSH Q8H PRN PRN Reason: Nausea and Vomiting Oxybutynin Chloride (Oxybutynin Chloride Er 5 Mg Tab.Er.24) 5 mg PO DAILY [facility] Last Admin: 12/24/23 07:41 Dose: 5 mg Documented By: ERIS Oxycodone HCl (Oxycodone Hcl Immed Release 5 Mg Tablet) 5 mg PO Q4H PRN PRN Reason: Pain, Moderate(Pain Scale 4-6) Sodium Chloride (0.9 % Sodium Chloride Flush 3 Ml Syringe) 3 ml IVFLUSH QSHIFT [facility] Last Admin: 12/24/23 19:27 Dose: 3 ml Documented By: PATRICE <[facility] - Last Filed: 12/25/23 07:05> Labs CBC & Chem 7: 12/20/23 20:38 12/21/23 04:48 <Sharigali Dodge Last Filed: 12/25/23 07:05> Assessment and Plan (1) Femoral hernia of left side with obstruction: Status: Acute <Sharigali Dodge Last Filed: 12/25/23 07:05> Assessment and Plan: Ms. Bolton is a 78 y/o female POD #4 for open repair incarcerated left femoral hernia with mesh. Postoperatively, she is doing well, however still awaiting return of normal bowel function. Abdomen is mildly distended with normoactive BS x4. Incision site is dry and without any drainage. Steris intact. Currently on clear liquids, continue until bowel function restored. Encouraged continued ambulation and use of incentive spirometer. Advanced diet to full liquids yesterday, will advance to regular diet with full yazidi of normal bowel function and if tolerating will discharge to home. Pain is currently controlled with PO acetaminophen as needed. <Shari Dodge - Last Filed: 12/25/23 07:05> Ms. Bolton is a 78 y/o female POD #4 for open repair incarcerated left femoral hernia with mesh. Postoperatively, she is doing well, however still awaiting return of normal bowel function. Abdomen is mildly distended with normoactive BS x4. Incision site is dry and without any drainage. Steris intact. Currently on clear liquids, continue until bowel function restored. Encouraged continued ambulation and use of incentive spirometer. Advanced diet to full liquids yesterday, will advance to regular diet with full yazidi of normal bowel function and if tolerating will discharge to home. Pain is currently controlled with PO acetaminophen as needed. Agree with above assessment. POD #4 s/p open repair incarcerated left femoral hernia with mesh. Now with flatus, reports constipation at baseline with normal BM every 3-4 days. Will advance to regular diet, continue OOB/ambulation, IS use. Bowel regimen. If tolerating solid diet, stable for discharge to home. Patient comfortable with plan. <Grisel Donovan PA-C - Last Filed: 12/25/23 08:10> Quality Stroke Does the patient have a stroke diagnosis?: No <Shari Dodge - Last Filed: 12/25/23 07:05> VTE Prior VTE?: No <Shari Dodge - Last Filed: 12/25/23 07:05> VTE Risk Level:: Surgical - low <Shari Dodge - Last Filed: 12/25/23 07:05> VTE Device Contraindication: N/A - Device Ordered <Shari Dodge - Last Filed: 12/25/23 07:05> VTE Drug Contraindication: Treatment Not Indicated <Shari Dodge - Last Filed: 12/25/23 07:05>
[2023-12-25 08:00] VITALS: BP 128/67; PULSE 88; RESP 18; TEMP 36.6; O2SAT 99
[2023-12-25] MEDS: oxyBUTYnin chloride ER 5 MG TAB.ER.24 PO (08:33)
[2023-12-25] MEDS: 0.9 % Sodium Chloride Flush 3 ML SYRINGE IVFLUSH (08:34)
--- NOTE | 2023-12-25 09:45 | PM.DS ---
DS: Providers Provider Date of Service: 12/25/23 <ZACH Rucker Last Filed: 12/26/23 12:50> Date of admission: 12/21/23 15:38 <ZACH Rucker Last Filed: 12/26/23 12:50> Date of discharge: 12/25/23 <Grisel Donovan PA-C - Last Filed: 12/26/23 12:50> Primary care physician: Merle Deutsch MD <ZACH Rucker Last Filed: 12/26/23 12:50> Attending physician on admission: Jaylen Ruggiero <ZACH Rucker Last Filed: 12/26/23 12:50> Attending physician on discharge: Jaylen Ruggiero <ZACH Rucker Last Filed: 12/26/23 12:50> DS: Diagnosis Discharge Diagnosis (1) Femoral hernia of left side with obstruction: Status: Acute <ZACH Rucker Last Filed: 12/26/23 12:50> DS: Summary Hospital Course Hospital Course: HPI AT ADMISSION: Fannie Bolton is a 78 year old female who is initial complaints were for diarrhea, lightheadedness which progressed to lower abdominal pain with associated nausea and vomiting. Workup including CT scan demonstrated findings consistent with an incarcerated left femoral hernia. Patient was unaware she had hernia before. She has never had symptoms from it prior to this. She otherwise tolerating a diet, has regular bowel habits. Hx of hysterectomy. Chart was reviewed and patient evaluated HOSPITAL COURSE: She was admitted to the surgical service for further treatment of the femoral hernia. Given the incarceration and pain, it was recommended to proceed with repair of the left femoral hernia. She was added onto the OR schedule for that day. On 12/21/23, open repair incarcerated left femoral hernia with Bard mesh was performed by Dr. Ruggiero without complication. The patient tolerated the procedure well. She had an uneventful but slow recovery course while awaiting return of GI function. She was ambulated and her activity was increased. She was continued on clear liquids until she began to pass flatus on POD #4. She began to pass continuous flatus and was advanced to solids. On the day of discharge, she was tolerating a solid diet without nausea, vomiting, she had mild incisional pain. She was ambulating without difficulty. Her abdomen was benign with clean incision. She was discharged to home on 12/25/23 in stable condition. She is to follow up in the office in 1 week. <Grisel Donovan PA-C - Last Filed: 12/26/23 12:50> Status at Discharge Functional status at discharge: independent ambulation <ZACH Rucker Last Filed: 12/26/23 12:50> Overall status at discharge: patient is progressing back to baseline <ZACH Rucker Last Filed: 12/26/23 12:50> Time Attestation Discharge Coordination Time (in mins): Stable <Jaylen Ruggiero MD - Last Filed: 12/26/23 10:13> Quality: Safe Use of Opioids Does Pt have an Active Cancer Diagnosis on the Problem List?: No <Jaylen Ruggiero MD - Last Filed: 12/26/23 10:13> Quality: Stroke Does the patient have a stroke diagnosis?: No <Jaylen Ruggiero MD - Last Filed: 12/26/23 10:13> Physical Exam Vital Signs: Vital Signs: Last Vital Signs Temp 97.8 F 12/25/23 08:00 Pulse 88 12/25/23 08:00 Resp 18 12/25/23 08:00 BP 128/67 12/25/23 08:00 Pulse Ox 99 12/25/23 08:00 O2 Del Method Room Air 12/25/23 08:00 BMI result Body Mass Index 25.1 <ZACH Rucker Last Filed: 12/26/23 12:50> Const: General: comfortable, no acute distress and alert <ZACH Rucker Last Filed: 12/26/23 12:50> Orientation/consciousness: patient oriented x3 <ZACH Rucker Last Filed: 12/26/23 12:50> Resp: Effort & Inspection: normal respiratory effort <ZACH Rucker Last Filed: 12/26/23 12:50> GI: Inspection: No distended and Yes incision (clean) <Grisel Donovan PA-C - Last Filed: 12/26/23 12:50> Palpation (GI): Soft to palpation and no guarding <Grisel Donovan PA-C - Last Filed: 12/26/23 12:50> Skin: General skin exam: no rashes or lesions noted <ZACH Rucker Last Filed: 12/26/23 12:50> Neuro: General: patient oriented x3 <Grisel Donovan PA-C - Last Filed: 12/26/23 12:50> Discharge Plan Discharge Anticipated Discharge Date/Time: 12/24/23 12:21 <ZACH Rucker Last Filed: 12/26/23 12:50> Patient Disposition: Home, Self-Care <ZACH Rucker Last Filed: 12/26/23 12:50> Discharge Diagnosis: s/p left femoral hernia repair <Grisel Donovan PA-C - Last Filed: 12/26/23 12:50> s/p left femoral hernia repair <Jaylen Ruggiero MD - Last Filed: 12/26/23 10:13> Referrals: Merle Deutsch MD [Primary Care Provider] - 1 Week Jaylen Ruggiero MD [Physician] - 1 Week <Grisel Donovan PA-C - Last Filed: 12/26/23 12:50> Discharge Medications: New docusate sodium [Colace] 100 mg capsule 100 mg PO BID Qty: 30 0RF polyethylene glycol 3350 [Miralax] 17 gram/dose powder 17 g PO DAILY Qty: 119 0RF Continued oxybutynin chloride 5 mg tablet extended release 24hr 5 mg PO DAILY <ZACH Rucker Last Filed: 12/26/23 12:50> Discharge Orders: Discharge Order (Routine); Ordered 12/25/23 Ordered By: Grisel Donovan <ZACH Rucker Last Filed: 12/26/23 12:50> Diet: Advance to usual diet <ZACH Rucker Last Filed: 10/10/24 12:50> Advance to usual diet <Jaylen Ruggiero MD - Last Filed: 12/26/23 10:13> Activity on Discharge: No heavy lifting <Grisel Donovan PA-C - Last Filed: 12/26/23 12:50> No heavy lifting <Jaylen Ruggiero MD - Last Filed: 12/26/23 10:13> Stand Alone Forms: Patient Portal Discharge page <ZACH Rucker Last Filed: 12/26/23 12:50> Print Language: Serbian <Grisel Donovan PA-C - Last Filed: 12/26/23 12:50> Activity Restrictions/Additional Instructions: Apply an ice pack for short intervals (20 minutes on, followed by at least 20 minutes off) for the first 2 days. Do not apply heat. Do not use creams, lotions, or topical antibiotics. These can cause infection or allergic reaction. Ok to shower. You have steri strips (small white cloth strips) covering your incision- these will fall off ~1 week. Follow up in office with Dr. Ruggiero in 1 week. ([phone]) No heavy lifting (>10lbs) or strenuous activity! Take Colace 100mg PO twice a day and miralax once a day until you are having bowel movements regularly. Call Your Doctor If: -Your temperature exceeds 101.5? F -You experience excessive pain or swelling -You have an unexpected reaction to medication -You have excessive bleeding -You experience continued vomiting/nausea -Your incision begins to separate -Your incision shows signs of infection such as increased redness, swelling, excessive pain, drainage (light blood or clear fluid is normal) or heat <Grisel Donovan PA-C - Last Filed: 12/26/23 12:50> Care Plan Goals: Return to baseline health and resume normal activities following recovery period. <Grisel Donovan PA-C - Last Filed: 12/26/23 12:50> Health Concerns: left femoral hernia with obstruction <Grisel Donovan PA-C - Last Filed: 12/26/23 12:50> Plan of Treatment: s/p repair of left femoral hernia f/u in office in 1 week <ZACH Rucker Last Filed: 12/26/23 12:50> Assessment: Doing well post op. <Grisel Donovan PA-C - Last Filed: 12/26/23 12:50> Discharge Date/Time: 12/25/23 15:55 <Grisel Donovan PA-C - Last Filed: 12/26/23 12:50>
[2023-12-25] MEDS: Acetaminophen 325 MG TABLET 650 MG PO (12:53)
--- NOTE | 2023-12-25 14:49 | MHC.CM.PN ---
pt dcd home self care
--- NOTE | 2023-12-25 15:07 | MHC.CM.PN ---
im updated pt aware that md did not order a vna ,pt is fine with that family will transport pt home
== END 2023-12-25 15:55 | disposition home or self-care (01) | DRG 352 ==
LOC: HO.ED 12-21 02:58 → HO.SSS 12-21 15:29 → HO.S3 12-21 15:56
PROVIDERS: Internal Medicine; Nurse Practitioner Family; Admitting Provider Surgery; Emergency Provider Internal Medicine; PCP Internal Medicine; Visit Provider Surgery
PROC: 0YU80JZ Supplement Left Femoral Region with Synthetic Substitute, Open Approach (ICD-10-PCS; principal; 2023-12-21 14:00)
DX: K41.30 Unilateral femoral hernia, with obstruction, without gangrene, not specified as recurrent (principal)
CPT/HCPCS: 36415; 70450; 72125; 74177; 80053; 81001; 83605; 83690; 83930; 83935; 84295; 84300; 84484; 85025; 85610; 93005; 99285; C1781; J0131; J0690; J1100; J1885; J2003; J2250; J2371; J2405; J2704; J2795; J3010; J7120; Q9967

== ENCOUNTER → 2023-12-20 21:39 | Outpatient (BNV) | payer MEDICARE, SELFPAY | PROVIDERS: Emergency Provider Internal Medicine; PCP Internal Medicine; Visit Provider Surgery | DX: K41.30 Unilateral femoral hernia, with obstruction, without gangrene, not specified as recurrent (principal) | CPT/HCPCS: 49553; 99024; 99222; 99429 ==

== ENCOUNTER 2024-01-01 11:20 | Outpatient (AMB) | payer MEDICARE, SELFPAY ==
--- NOTE | 2024-01-01 11:45 | MHC.OFFVIS ---
Intake Visit Reasons: s/p incarcerated left femoral hernia Intake Note: Patient here s/p incarcerated left femoral hernia on 12-21-2023. Reports incision healing well. Patient c/.o: no concerns. Information Systems Auditor Required: No Accompanied by: sister Margaret Allergies No Known Allergies Allergy (Verified 01/01/24 11:45) HPI Comments Details: Patient presents with her sister. Patient doing quite well. She is tolerating a diet. He is having regular bowel habits. She is increasing her activity level. She has minimal incisional discomfort. [facility] Medical History (Updated 12/31/23 @ 15:47 by ABDELRAHMAN Loya) Femoral hernia of left side with obstruction (12/21/23) Social History Household Members: None Housing: Apartment Do you presently have visiting nurse or other home services: No Patient Tobacco Use Status: Never used Tobacco Second Hand Smoke Exposure: No service: No Physical Exam GI Other: Abdomen mildly corpulent, soft, benign. Incision clean dry and intact healing very well Assessment & Plan Assessment & Plan (1) Postop check: Code(s): Z09 - Encounter for follow-up examination after completed treatment for conditions other than malignant neoplasm Category: Surgical (2) Status post hernia repair: Code(s): Z98.890 - Other specified postprocedural states; Z87.19 - Personal history of other diseases of the digestive system Category: Surgical Plan Patient was been given local instructions including avoiding strenuous activities next few weeks time and will otherwise follow-up p.r.n.. All questions answered. Coding Level of Care Code Global (24841) Diagnoses Postop check Z09 Status post hernia repair Z98.890; Z87.19
== END 2024-01-01 11:47 | disposition home or self-care (01) ==
PROVIDERS: PCP Internal Medicine; Visit Provider Surgery
DX: Z09 Encounter for follow-up examination after completed treatment for conditions other than malignant neoplasm (principal); Z98.890 Other specified postprocedural states; Z87.19 Personal history of other diseases of the digestive system
CPT/HCPCS: 99024

== ENCOUNTER → 2024-01-01 11:20 | Outpatient (BNVA) | payer MEDICARE, SELFPAY | PROVIDERS: PCP Internal Medicine; Visit Provider Surgery | DX: Z09 Encounter for follow-up examination after completed treatment for conditions other than malignant neoplasm (principal); Z87.19 Personal history of other diseases of the digestive system; Z98.890 Other specified postprocedural states | CPT/HCPCS: 99212 ==